=== PATIENT | male | born 1995 | race Caucasian/White ===

== ENCOUNTER → 2023-11-28 17:26 | Outpatient (REF) | payer OTHER, SELFPAY | LOC: MRI 17:26 | PROVIDERS: ATTENDING PHYSICIAN Internal Medicine; FAMILY PHYSICIAN Family Medicine | DX: Z95.2 Presence of prosthetic heart valve (principal); I77.89 Other specified disorders of arteries and arterioles | CPT/HCPCS: 71555; A9585 ==

== ENCOUNTER → 2024-08-03 15:16 | Outpatient (REF) | payer OTHER, SELFPAY | LOC: HWRCS 15:16 | PROVIDERS: ATTENDING PHYSICIAN Internal Medicine; FAMILY PHYSICIAN Family Medicine | DX: Z95.2 Presence of prosthetic heart valve (principal); I77.89 Other specified disorders of arteries and arterioles | CPT/HCPCS: 93306 ==